=== PATIENT | male | born 1960 | race African-American/Black ===

== ENCOUNTER 2020-04-03 18:34 | Inpatient (IN) | payer BC ==
[~2020-04-03 18:34] MED LIST: Iopamidol-370 76% 500 ML 1 ML ONE
[2020-04-03 19:13] LABS: #Basophils 0.1 thou/uL (0.0-0.2); #Eosinphils 0.2 thou/uL (0.0-0.7); #Lymphocytes 2.6 thou/uL (1.20-3.40); #Monocytes 0.6 thou/uL (0.11-0.59); #Neutrophils 6.3 thou/uL (1.40-6.50); %Basophils 1.2 % (0.0-1.0); %Eosinophils 2.4 % (0.0-10.0); %Lymphocytes 26.5 % (21.0-51.0); %Monocytes 6.1 % (0.0-10.0); %Neutrophils 63.9 % (42.0-75.0); Hemoglobin 15.7 g/dL (14.0-18.0); Mean Corpuscular HGB CONC 33.1 g/dL (32.0-36.0); Mean Corpuscular Hemoglobin 31.5 pg (27.0-31.0); Mean Corpuscular Volume 95.1 fL (78.0-98.0); Mean Platelet Volume 7.9 fL (7.4-10.4); Platelet Count 231 thou/uL (130-400); RBC Distribution Width 11.7 % (11.5-14.5); Red Blood Cell (RBC) Count 4.97 mill/uL (4.70-6.10); White Blood Cell (WBC) Count 9.8 thou/uL (4.8-10.8)
[2020-04-03 19:26] LABS: Bilirubin Negative (Negative); Blood, Urine Negative (Negative); Clarity Clear (Clear); Glucose, Urine (Dipstick) Normal (Negative); Leukocyte Negative Leu/uL (Negative); Nitrite Negative (Negative); Protein, Urine (Dipstick) 20 mg/dL (Neg-Trace)
--- NOTE | 2020-04-03 19:30 | RAD ---
Chest one view HISTORY: Dyspnea. Chest pain. COMPARISON: 11/07/2015. FINDINGS: Cardiac silhouette is magnified by projection. Pulmonary vasculature is unremarkable. Subtle ill-defined vertically oriented opacity at the left suprahilar level has the appearance of par enchymal infiltrate. Mediastinum is midline. No pleural fluid or pneumothorax are apparent. surveillance system monitor leads overlie the chest. IMPRESSION : Subtle left suprahilar infiltrate. Clinical correlation regarding other signs and symptoms of left up per lobe pneumonitis is required.
--- NOTE | 2020-04-03 19:40 | CT ---
CT arteriogram chest with IV contrast and 3-D imaging HISTORY: Chest pain. Dyspnea. COMPARISON: 11/07/2015. FINDINGS: Large cylindrical low density filling defects are present within the right main pulmonary a rtery and extending into the right lung lobes and are also present within the left upper and lower lobe segmental arteries. Some parenchymal opacity involving the central aspect of the left lung may b e related to developing infarct given that it is in the area of heaviest clot burden. No pleural fluid or pneumothorax. No findings of right heart strain. 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 IMPRESSION : Extensive bilateral pulmonary emboli. No evidence of right heart strain. Findings were called to Dr. Cabrales in the emergency department at 1933 hours. Code CR.
[2020-04-03 19:41] LABS: ALT (SGPT) 14 U/L (8-55); AST (SGOT) 14 U/L (5-34); Albumin 4.5 g/dL (3.5-5.0); Alkaline Phosphatase 103 U/L (40-110); Anion Gap 18 mmol/L (10-20); BUN (Urea Nitrogen) 12 mg/dL (8.4-25.7); Bilirubin, Total 2.9 mg/dL (0.2-1.2); CK (CPK) 79 U/L (30-200); Calc. Creatinine Clearance 0 mL/min (70-130); Calcium 9.6 mg/dL (7.8-10.44); Carbon Dioxide 21 mmol/L (22-29); Chloride 103 mmol/L (98-107); Estimated GFR-MDRD 61; Globulin 3.3 g/dL (2.4-3.5); Glucose 87 mg/dL (70-105); Lipase 9 U/L (8-78); Potassium 3.4 mmol/L (3.5-5.1); Protein, Total 7.8 g/dL (6.0-8.3); Sodium 139 mmol/L (136-145)
[2020-04-03] MEDS ORDERED: Enoxaparin Sodium 100 MG/ML SYRINGE ONE (20:13)
[2020-04-03] MEDS ORDERED: Acetaminophen 325 MG TAB PO PRN (20:21)
[2020-04-03] MEDS ORDERED: HYDROcodone/Acetaminophen 5/325 mg Tablet PO PRN ×2 (20:21)
[2020-04-03] MEDS ORDERED: Acetaminophen 650 MG Suppository PR PRN (20:21)
[2020-04-03 20:26] LABS: CKMB 1.7 ng/mL (0-6.6)
--- NOTE | 2020-04-03 21:00 | PDOC.HHP ---
Hospitalist HPI - History of Present Illness sob / danny History of Present Illness: Case of an 60 y/o male with pmhx of dvt and PEs in the past come to hospital due to dyspnea. patient refers he was on his usual state of health until 3-4wks ago when he started with dyspnea worsen by exertion. he states he had episodes off and on for the the last weeks but in the last 3 days it has become worse. patient refers palpitations, diaphoresis and danny, he states he cant go from bed to bathroom w/o getting exhausted, and need hours to recuperate. patient denies chest pain, pt also refers many person in his family members have similar symptoms Hospitalist ROS - Review of Systems All other systems reviewed; all pertinent +/- noted in HPI/Subj Hospitalist History - Past Medical History Source: patient Pulmonary: reports: deep vein thrombosis, pulmonary embolism - Past Surgical History Past Surgical History: reports: Tonsillectomy - Family History Other Family History: coagulopathy - Social History Smoking Status: Current some day smoker Alcohol: reports: None Drugs: reports: none Living Situation: With Family Activity level: independent ambulation - Exam General Appearance: awake alert Eye: PERRL, anicteric sclera ENT: normocephalic atraumatic, no oropharyngeal lesions Neck: supple, symmetric, no JVD, no thyromegaly Heart: RRR, no murmur, no gallops, no rubs Respiratory: CTAB, no wheezes, no rales, no ronchi, tachypneic Gastrointestinal: soft, non-tender, non-distended, normal bowel sounds Extremities: no cyanosis, no clubbing Skin: normal turgor, no lesions, no rashes Neurological: cranial nerve grossly intact, normal sensation to touch, no weakness Musculoskeletal: normal tone, normal strength, no muscle wasting Psychiatric: normal affect, normal behavior, A&O x 3 Hospitalist Results - Labs Result Diagrams: 04/03/20 18:59 04/03/20 18:59 Lab results: WBC 9.8 thou/uL (4.8-10.8) 04/03/20 18:59 Hgb 15.7 g/dL (14.0-18.0) 04/03/20 18:59 Hct 47.3 % (42.0-52.0) 04/03/20 18:59 MCV 95.1 fL (78.0-98.0) 04/03/20 18:59 Plt Count 231 thou/uL (130-400) 04/03/20 18:59 Neutrophils % 63.9 % (42.0-75.0) 04/03/20 18:59 Sodium 139 mmol/L (136-145) 04/03/20 18:59 Potassium 3.4 mmol/L (3.5-5.1) L 04/03/20 18:59 Chloride 103 mmol/L (98-107) 04/03/20 18:59 Carbon Dioxide 21 mmol/L (22-29) L 04/03/20 18:59 BUN 12 mg/dL (8.4-25.7) 04/03/20 18:59 Creatinine 1.44 mg/dL (0.7-1.3) H 04/03/20 18:59 Glucose 87 mg/dL (70-105) 04/03/20 18:59 Lactic Acid 1.5 mmol/L (0.5-2.2) 04/03/20 18:59 Calcium 9.6 mg/dL (7.8-10.44) 04/03/20 18:59 Total Bilirubin 2.9 mg/dL (0.2-1.2) H 04/03/20 18:59 AST 14 U/L (5-34) 04/03/20 18:59 ALT 14 U/L (8-55) 04/03/20 18:59 Alkaline Phosphatase 103 U/L (40-110) 04/03/20 18:59 Creatine Kinase 79 U/L (30-200) 04/03/20 18:59 CK-MB (CK-2) 1.7 ng/mL (0-6.6) 04/03/20 18:59 Troponin I 0.389 ng/mL (< 0.028) H* 04/03/20 18:59 Serum Total Protein 7.8 g/dL (6.0-8.3) 04/03/20 18:59 Albumin 4.5 g/dL (3.5-5.0) 04/03/20 18:59 Lipase 9 U/L (8-78) 04/03/20 18:59 Urine Ketones 100 mg/dL (Negative) A 04/03/20 19:15 Urine Blood Negative (Negative) 04/03/20 19:15 Urine Nitrite Negative (Negative) 04/03/20 19:15 Ur Leukocyte Esterase Negative Martinez/uL (Negative) 04/03/20 19:15 - Radiology Interpretation CT scan - chest Status: image reviewed by me (b/l PE), report reviewed by md Hospitalist H&P A/P - Problem (1) Pulmonary embolism Code(s): I26.99 - OTHER PULMONARY EMBOLISM WITHOUT ACUTE COR PULMONALE Status : Acute (2) Hypoxemia Code(s): R09.02 - HYPOXEMIA Status: Acute (3) Coagulopathy Status: Acute (4) Tobacco use Code(s): Z72.0 - TOBACCO USE Status: Acute (5) Elevated troponin Code(s): R79.89 - OTHER SPECIFIED ABNORMAL FINDINGS OF BLOOD CHEMISTRY Status : Acute - Plan Plan: PE - paient with b/l PE by CT with dyspnea hypoxia and troponin elevation, started on lovenox full anticoagulation, will be admitted to telemetry, medical office manager consulted. hypoxia - secondary to PE, hypoxic at RA, wean as tolerated if possible, might require home 02 elevated troponin - troponin elevated, likely troponin leak due to possible heart strain from PE, will order 2d echo and serial troponins to evaluate trend tabacco use - occasional, advise to quit, nicotine patch offered, patient
[2020-04-03 22:21] LABS: Critical Call Chem Troponin I RESULT DECREASING; Troponin I 0.384 ng/mL (< 0.028)
[2020-04-03 22:28] VITALS: BMI 29.1
[2020-04-04 02:43] LABS: Critical Call Chem Troponin I RESULT DECREASING; Troponin I 0.382 ng/mL (< 0.028)
[2020-04-04 05:20] LABS: ALT (SGPT) 13 U/L (8-55); AST (SGOT) 24 U/L (5-34); Albumin 4.1 g/dL (3.5-5.0); Alkaline Phosphatase 93 U/L (40-110); Anion Gap 18 mmol/L (10-20); BUN (Urea Nitrogen) 12 mg/dL (8.4-25.7); Bilirubin, Total 2.7 mg/dL (0.2-1.2); Calc. Creatinine Clearance 77 mL/min (70-130); Calcium 9.1 mg/dL (7.8-10.44); Carbon Dioxide 20 mmol/L (22-29); Chloride 103 mmol/L (98-107); Estimated GFR-MDRD 61; Globulin 3.5 g/dL (2.4-3.5); Glucose 70 mg/dL (70-105); Protein, Total 7.6 g/dL (6.0-8.3); Sodium 137 mmol/L (136-145)
[2020-04-04 05:42] LABS: #Basophils 0.1 thou/uL (0.0-0.2); #Eosinphils 0.2 thou/uL (0.0-0.7); #Lymphocytes 2.5 thou/uL (1.20-3.40); #Monocytes 0.6 thou/uL (0.11-0.59); #Neutrophils 5.4 thou/uL (1.40-6.50); %Basophils 1.3 % (0.0-1.0); %Eosinophils 2.2 % (0.0-10.0); %Lymphocytes 28.7 % (21.0-51.0); %Monocytes 6.6 % (0.0-10.0); %Neutrophils 61.3 % (42.0-75.0); Hemoglobin 14.6 g/dL (14.0-18.0); Mean Corpuscular HGB CONC 33.2 g/dL (32.0-36.0); Mean Corpuscular Hemoglobin 31.6 pg (27.0-31.0); Mean Corpuscular Volume 95.2 fL (78.0-98.0); Mean Platelet Volume 8.2 fL (7.4-10.4); Platelet Count 230 thou/uL (130-400); RBC Distribution Width 11.6 % (11.5-14.5); Red Blood Cell (RBC) Count 4.61 mill/uL (4.70-6.10); White Blood Cell (WBC) Count 8.8 thou/uL (4.8-10.8)
[2020-04-04] MEDS ORDERED: Loratadine 10 MG TAB PO PRN (08:25)
[2020-04-04] MEDS ORDERED: Loperamide HCl 2 MG CAP PO PRN (08:25)
[2020-04-04] MEDS ORDERED: Calcium Carbonate 500 MG ChewTAB PO PRN (08:25)
[2020-04-04] MEDS ORDERED: Diabetic Tussin 200 MG/10 ML UDCUP PO PRN (08:25)
[2020-04-04] MEDS ORDERED: Artificial Tears 18 DROP/0.9 ML EA EYE PRN (08:25)
[2020-04-04] MEDS ORDERED: Ondansetron PF 4 MG/2 ML Vial IVP PRN (08:25)
[2020-04-04] MEDS ORDERED: Sodium Chloride 0.65% Nasal 44 ML BOT EA NARE PRN (08:25)
[2020-04-04] MEDS ORDERED: Zolpidem Tartrate 5 MG TAB PO PRN (08:25)
[2020-04-04] MEDS ORDERED: Ondansetron ODT 4 MG TAB PO PRN (08:25)
[2020-04-04] MEDS ORDERED: Senokot S 8.6-50 MG TAB PO PRN (08:25)
[2020-04-04] MEDS ORDERED: Bisacodyl 10 MG SUPP PR PRN (08:25)
[2020-04-04] MEDS ORDERED: hydrALAZINE 20 MG/ML VIAL SLOW IVP PRN (08:25)
[2020-04-04] MEDS ORDERED: Cepastat Lozenges 1 LOZ PO PRN (08:25)
[2020-04-04] MEDS: Enoxaparin Sodium 100 MG/ML SYRINGE SC SCH ×2 (08:38→21:05)
--- NOTE | 2020-04-04 10:46 | ULT ---
EXAM: Bilateral lower extremity venous Doppler HISTORY: Pulmonary embolism and history of DVT. FINDINGS: Grayscale, color-flow, Doppler evaluation, spectral analysis of the bilateral lower extremity venous structures is performed with 2-D imaging. The bilateral common femoral, superficial femoral, popliteal, posterior tibial, proximal greater saphenous and profunda femoral veins are imaged. There is echogenic material and decreased lumen compressibility seen within the right lower extremity popliteal vein and extending into the proximal peroneal vein. There is also increased luminal echogenicity and decreased lumen compressibility involving the left lower extremity popliteal vein ex tending into the peroneal veins with decreased lumen compressibility and echogenic material seen within the mid and distal left lower extremity posterior tibial vein. Findings are compatible with bi lateral lower extremity deep vein thrombosis. There is otherwise normal luminal compressibility and flow in the remaining visualized deep venous st ructures throughout the bilateral lower extremities. IMPRESSION: Evidence of deep vein thrombosis involving the bilateral popliteal and peroneal veins as well as left lower extremity posterior tibial vein.
--- NOTE | 2020-04-04 10:47 | CON ---
DATE OF CONSULTATION: HISTORY OF PRESENT ILLNESS: The patient is a 60-year-old gentleman who presented with the acute onset of dyspnea. The patient was seen in 2015 with a pulmonary embolus. The patient was subsequently placed on anticoagulation therapy. He states he took Xarelto for several months. He discontinued this medication. The patient was in his usual state of health until a few weeks ago when he started noticing increasing dyspnea. He states this occurred with minimal exertion. The patient presented to the emergency room with dyspnea. The patient denied having any chest discomfort. PAST MEDICAL HISTORY: 1. Pulmonary embolus. 2. Kidney stone. PAST SURGICAL HISTORY: 1. He has had a hernia surgery. 2. Adenoidectomy. SOCIAL HISTORY: He uses marijuana. Nonsmoker. ALLERGIES: NO KNOWN DRUG ALLERGIES. MEDICATIONS: None. REVIEW OF SYSTEMS: Ten-point system otherwise unremarkable. PHYSICAL EXAMINATION: GENERAL: A well-developed gentleman, in no acute distress. VITAL SIGNS: Blood pressure 128/74. NECK: No jugular vein distention. LUNGS: Clear to auscultation. HEART: Regular rate and rhythm. Normal S1 and S2. No murmurs. ABDOMEN: Nondistended. EXTREMITIES: No edema. VASCULAR: 2+. LABORATORY DATA: Sodium 137, potassium 4.0, chloride 103, bicarb 20, BUN 12, and creatinine 1.4. Troponin was 0.382. White blood cell count 8.8, hemoglobin 14.6, hematocrit 43.9, and platelets are 230. EKG revealed normal sinus rhythm with a T-wave abnormality, suggestive of ischemia and prolonged QT interval. IMPRESSION: 1. Pulmonary embolus. 2. Renal insufficiency. 3. Elevated troponin level. PLAN: This gentleman presents with pulmonary embolus. We will check the patient's echocardiogram. We will follow this patient with you through his hospitalization. Job ID: [id number] [facility]
--- NOTE | 2020-04-04 10:50 | PDOC.HOSPP ---
- Subjective Encounter Date: 04/04/20 Encounter Time: 08:00 Subjective: Patient seen and examined. No new complaints. No overnight events - Objective Vital Signs & Weight: Vital Signs (12 hours) Temp Pulse Resp BP Pulse Ox 04/04/20 03:29 98 F 75 16 128/74 97 Weight Weight 214 lb 14.4 oz I&O: 04/03/20 04/04/20 04/05/20 06:59 06:59 06:59 Intake Total 360 Output Total 300 Balance 60 Result Diagrams: 04/04/20 04:25 04/04/20 04:25 Radiology Reviewed by me: Yes EKG Reviewed by me: Yes Hospitalist ROS - Review of Systems Eyes: denies: pain, vision change, conjunctivae inflammation, eyelid inflammation, redness, other ENT: denies: ear pain, ear discharge, nose pain, nose discharge, nose congestion , mouth pain, mouth swelling, throat pain, throat swelling, other Respiratory: denies: cough, dry, shortness of breath, hemoptysis, SOB with excertion, pleuritic pain, sputum, wheezing, other Cardiovascular: denies: chest pain, palpitations, orthopnea, paroxysmal noc. dyspnea, edema, light headedness, other Gastrointestinal: denies: nausea, vomiting, abdominal pain, diarrhea, constipation, melena, hematochezia, other Genitourinary: denies: dysuria, frequency, incontinence, hematuria, retention, other Musculoskeletal: denies: neck pain, shoulder pain, arm pain, back pain, hand pain, leg pain, foot pain, other Skin: denies: rash, lesions, alaina, bruising, other - Medication Medications: Active Medications Generic Name Dose Route Start Last Admin Trade Name Freq PRN Reason Stop Dose Admin Enoxaparin Sodium 100 mg 04/04/20 09:00 04/04/20 08:38 Lovenox SC 100 mg 0900,2100 SP Administration - Exam General Appearance: NAD, awake alert Eye: PERRL, anicteric sclera ENT: normocephalic atraumatic, no oropharyngeal lesions Neck: supple, symmetric, no JVD, no thyromegaly Heart: RRR, no murmur Respiratory: CTAB, no wheezes, no rales, no ronchi Gastrointestinal: soft, non-tender, non-distended, normal bowel sounds Extremities: no cyanosis, no clubbing, no edema Skin: normal turgor, no lesions Neurological: no focal deficits Musculoskeletal: normal tone, normal strength Psychiatric: normal affect, normal behavior Hosp A/P (1) Acute respiratory failure with hypoxemia Code(s): J96.01 - ACUTE RESPIRATORY FAILURE WITH HYPOXIA Status: Acute (2) Pulmonary embolism Code(s): I26.99 - OTHER PULMONARY EMBOLISM WITHOUT ACUTE COR PULMONALE Status : Acute Qualifiers: Pulmonary embolism type: multiple subsegmental (without acute cor pulmonale) Qualified Code(s): I26.94 - Multiple subsegmental pulmonary emboli without acute cor pulmonale (3) DVT (deep venous thrombosis) Code(s): I82.409 - ACUTE EMBOLISM AND THOMBOS UNSP DEEP VN UNSP LOWER EXTREMITY Status: Acute Qualifiers: DVT location: lower extremity Affected thrombotic vein of extremity: popliteal Chronicity: acute Laterality: bilateral Qualified Code(s): I82.433 - Acute embolism and thrombosis of popliteal vein, bilateral (4) Type 2 myocardial infarction Code(s): I21.A1 - MYOCARDIAL INFARCTION TYPE 2 Status: Acute (5) FRANCISCA (acute kidney injury) Code(s): N17.9 - ACUTE KIDNEY FAILURE, UNSPECIFIED Status: Acute (6) Tobacco use Code(s): Z72.0 - TOBACCO USE Status: Chronic (7) ESTEBAN on CPAP Code(s): G47.33 - OBSTRUCTIVE SLEEP APNEA (ADULT) (PEDIATRIC) Status: Chronic - Plan old records reviewed/req continue lovenox cardiology consult US leg positive for DVT pulmonary consulted echo pending monitor labs he will need life long anticoagulants medication reviewed and continue symptomatic treatment change to inpt status
[2020-04-04 12:59] LABS: INR-International Normal Ratio 1.2; PTT 51.2 SEC (22.9-36.1); Prothrombin Time 14.8 sec (12.0-14.7)
[2020-04-04 13:00] LABS: D-Dimer Test 3.75 *mcg/mL (0.27-0.43)
--- NOTE | 2020-04-04 19:02 | CON ---
DATE OF CONSULTATION: HISTORY OF PRESENT ILLNESS: This is a 60-year-old gentleman, who comes into the ER with shortness of breath as outlined. 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 Denies any chest pain, fevers, chills, sweats, or hemoptysis. Denies any leg swelling. Reviewing his medical records, he had a diagnosis of pulmonary emboli 4 years ago. Received anticoagulation for an unknown period of time. He has done well. PAST MEDICAL HISTORY: Pertinent for previous pulmonary emboli, previous DVT. PAST SURGICAL HISTORY: Hernia, tonsils. SOCIAL HISTORY: Alcohol, none. He uses marijuana. HOME MEDICATIONS: Unknown. SOCIAL HISTORY: As noted. FAMILY HISTORY: Unremarkable. He says mother might had DVT at one time, otherwise negative. PHYSICAL EXAMINATION: VITAL SIGNS: Temperature 98, pulse 73, respirations 16, O2 sats 92% on 2 L, blood pressure 120/60. CHEST: No wheezing, crackles. CARDIAC: Normal S1, S2. No gallops. ABDOMEN: No masses. LABORATORY DATA: Creatinine 1.43. Troponin was elevated. Echo is pending. CT chest shows evidence of bilateral pulmonary emboli with a right ventricular strain. Ultrasound of legs, DVT. IMPRESSION: 1. Bilateral pulmonary emboli, deep venous thrombosis, recurrent. 2. Azotemia. 3. Marijuana intake. PLAN: I agree with Gabrielax, is going to require lifelong anticoagulation. Chemistry profile is being ordered. He has seen Dr. Hall in the past. We will notify him tomorrow. Consultation note, 70 minutes, 50% direct patient care. Job ID: [id number]
[2020-04-05 04:38] LABS: Hemoglobin 14.6 g/dL (14.0-18.0); Platelet Count 232 thou/uL (130-400)
[2020-04-05 05:24] LABS: INR-International Normal Ratio 1.1; Prothrombin Time 13.7 sec (12.0-14.7)
[2020-04-05 05:25] LABS: D-Dimer Test 3.77 *mcg/mL (0.27-0.43)
[2020-04-05] MEDS: Enoxaparin Sodium 100 MG/ML SYRINGE SC SCH ×2 (09:01→20:18)
--- NOTE | 2020-04-05 09:54 | PDOC.HOSPP ---
- Subjective Encounter Date: 04/05/20 Encounter Time: 08:30 Subjective: Patient seen and examined. No new complaints. No overnight events - Objective Vital Signs & Weight: Vital Signs (12 hours) Temp Pulse Resp BP Pulse Ox 04/05/20 08:59 98.0 F 72 16 126/85 100 04/05/20 04:00 98.1 F 68 18 95/57 L 100 Weight Weight 214 lb 14.4 oz I&O: 04/04/20 04/05/20 04/06/20 06:59 06:59 06:59 Intake Total 360 990 Output Total 300 950 Balance 60 40 Result Diagrams: 04/05/20 03:58 04/05/20 03:58 Radiology Reviewed by me: Yes EKG Reviewed by me: Yes Hospitalist ROS - Review of Systems ENT: denies: ear pain, ear discharge, nose pain, nose discharge, nose congestion , mouth pain, mouth swelling, throat pain, throat swelling, other Respiratory: denies: cough, dry, shortness of breath, hemoptysis, SOB with excertion, pleuritic pain, sputum, wheezing, other Cardiovascular: denies: chest pain, palpitations, orthopnea, paroxysmal noc. dyspnea, edema, light headedness, other Gastrointestinal: denies: nausea, vomiting, abdominal pain, diarrhea, constipation, melena, hematochezia, other Genitourinary: denies: dysuria, frequency, incontinence, hematuria, retention, other Musculoskeletal: denies: neck pain, shoulder pain, arm pain, back pain, hand pain, leg pain, foot pain, other - Medication Medications: Active Medications Generic Name Dose Route Start Last Admin Trade Name Samsonq PRN Reason Stop Dose Admin Enoxaparin Sodium 100 mg 04/04/20 09:00 04/05/20 09:01 Lovenox SC 100 mg 0900,2100 [facility] Administration - Exam General Appearance: NAD, awake alert Eye: PERRL, anicteric sclera ENT: normocephalic atraumatic, no oropharyngeal lesions Neck: supple, symmetric, no JVD, no thyromegaly Heart: RRR, no murmur, no gallops, no rubs Respiratory: CTAB, no wheezes, no rales, no ronchi Gastrointestinal: soft, non-tender, non-distended, normal bowel sounds Extremities: no cyanosis, no clubbing Skin: normal turgor, no lesions Neurological: cranial nerve grossly intact, no focal deficits Musculoskeletal: normal tone, normal strength Psychiatric: normal affect, normal behavior Hosp A/P (1) Acute respiratory failure with hypoxemia Code(s): J96.01 - ACUTE RESPIRATORY FAILURE WITH HYPOXIA Status: Acute (2) Pulmonary embolism Code(s): I26.99 - OTHER PULMONARY EMBOLISM WITHOUT ACUTE COR PULMONALE Status : Acute Qualifiers: Pulmonary embolism type: multiple subsegmental (without acute cor pulmonale) Qualified Code(s): I26.94 - Multiple subsegmental pulmonary emboli without acute cor pulmonale (3) DVT (deep venous thrombosis) Code(s): I82.409 - ACUTE EMBOLISM AND THOMBOS UNSP DEEP VN UNSP LOWER EXTREMITY Status: Acute Qualifiers: DVT location: lower extremity Affected thrombotic vein of extremity: popliteal Chronicity: acute Laterality: bilateral Qualified Code(s): I82.433 - Acute embolism and thrombosis of popliteal vein, bilateral (4) Type 2 myocardial infarction Code(s): I21.A1 - MYOCARDIAL INFARCTION TYPE 2 Status: Acute (5) FRANCISCA (acute kidney injury) Code(s): N17.9 - ACUTE KIDNEY FAILURE, UNSPECIFIED Status: Acute (6) Tobacco use Code(s): Z72.0 - TOBACCO USE Status: Chronic (7) ESTEBAN on CPAP Code(s): G47.33 - OBSTRUCTIVE SLEEP APNEA (ADULT) (PEDIATRIC) Status: Chronic - Plan old records reviewed/req continue lovenox cardiology consult US leg positive for DVT pulmonary consulted echo pending monitor labs he will need life long anticoagulants medication reviewed and continue symptomatic treatment change to inpt status 04/05/20 continue lovenox today given severity of DVT and PE wean off oxygen as tolerated cardi-pulmonary recommendation appreciated he will need age appropriate cancer screening outpt
[2020-04-05 11:47] LABS: Factor VIII Test 184.6 % ACTIVE (56-157); HEX PHOS LA Tube 1 50.7 SEC; HEX PHOS LA Tube 2 44.1 SEC; Hexagonal Phospholipid Neut 6.6 SEC (0-8.0); Protein C Activity 69 % (78-152)
--- NOTE | 2020-04-05 16:08 | PRG ---
DATE OF SERVICE: 04/05/2020 SUBJECTIVE: Mr. Lizama says he is feeling better. He says his legs are not bother him. He denies being short of breath. He is now on room air at 95% saturations. OBJECTIVE: VITAL SIGNS: Blood pressure 135/77, heart rate 70, respiratory rate 20. LUNGS: Clear. HEART: Regular rhythm. ABDOMEN : Soft. IMPRESSION: Subacute thromboembolic disease. PLAN: I would recommend switching him to a loading dose of Eliquis in the morning. I have asked him to get a Life Alert bracelet for his anticoagulants. He has already been on anticoagulants in the past, so he understands the risks. Thrombosis panel probably should be sent just in the event he has something that would lead to need for genetic counseling with family. Job ID: [id number]
[2020-04-05 17:57] LABS: Cardiolipin IgA Ab 1.5 APL-U/mL (<14 Negative); Cardiolipin IgG Ab 4.3 GPL-U/mL (<10 Negative); Cardiolipin IgM Ab 1.1 MPL-U/mL (<10 Negative); EliA APS New Method **** NEW METHOD ****
[2020-04-06 05:03] LABS: Prothrombin Time 13.6 sec (12.0-14.7)
[2020-04-06] MEDS: Enoxaparin Sodium 100 MG/ML SYRINGE SC SCH (08:37)
--- NOTE | 2020-04-06 10:43 | PRG ---
DATE OF SERVICE: 04/06/2020 SUBJECTIVE: Mr. Lizama has no new complaints. He is in a bedside chair. He denied shortness of breath. OBJECTIVE: VITAL SIGNS: His oximetry is 96% on room air. Afebrile. Heart rate 69, blood pressure 114/71. LUNGS: Clear. HEART: Regular rhythm. ABDOMEN: Soft. EXTREMITIES: Without asymmetry or edema. He has at the bottom of his right gluteal margin what appears to be an epidermal inclusion cyst. He wanted me to look at that. He says it has been there for years and had not changed in size. I have asked him to see a surgeon as an outpatient to see if this needs to be drained or excised. Other than that, he has no other issues at this point in time. He had his last dose of Lovenox this morning. He will be started on Eliquis this evening. Hopefully, we can anticipate he will be discharged in the morning. Job ID: [id number]
--- NOTE | 2020-04-06 17:20 | PDOC.HOSPP ---
- Subjective Subjective: Seen and examined on the medical unit with telemetry. Patient has improved since admission. Patient now breathing comfortably on room air. We're transitioning them off Lovenox to Eliquis. Patient has had unprovoked pulmonary embolism in the past, he will now requiring lifelong anticoagulation. Time was given for questions, all answered in detail. - Objective Vital Signs & Weight: Vital Signs (12 hours) Temp Pulse Resp BP Pulse Ox 04/06/20 16:11 98.1 F 67 17 114/74 95 04/06/20 11:28 98.0 F 70 18 120/75 97 04/06/20 07:39 97.3 F L 69 16 114/71 96 Weight Weight 214 lb 14.4 oz I&O: 04/05/20 04/06/20 04/07/20 06:59 06:59 06:59 Intake Total 990 960 Output Total 950 400 Balance 40 560 Result Diagrams: 04/05/20 03:58 04/05/20 03:58 Radiology Reviewed by me: Yes Hospitalist ROS - Review of Systems All other systems reviewed; all pertinent +/- noted in HPI/Subj - Exam General Appearance: NAD, awake alert Eye: anicteric sclera ENT: normocephalic atraumatic, moist mucosa Neck: supple, symmetric, no lymphadenopathy Heart: no murmur, no gallops Respiratory: no wheezes, no rales, no ronchi Respiratory - other findings: mildly deminished breath sounds upper lung bender Gastrointestinal: soft, non-tender, no guarding, no rigidity Extremities: 1+ LE edema Skin: no rashes Neurological: cranial nerve grossly intact, no focal deficits Musculoskeletal: normal strength Psychiatric: normal affect, A&O x 3 Hosp A/P (1) FRANCISCA (acute kidney injury) Code(s): N17.9 - ACUTE KIDNEY FAILURE, UNSPECIFIED Status: Acute (2) Acute respiratory failure with hypoxemia Code(s): J96.01 - ACUTE RESPIRATORY FAILURE WITH HYPOXIA Status: Acute (3) Coagulopathy Status: Acute (4) Elevated troponin Code(s): R79.89 - OTHER SPECIFIED ABNORMAL FINDINGS OF BLOOD CHEMISTRY Status : Acute (5) Hypoxemia Code(s): R09.02 - HYPOXEMIA Status: Acute (6) Type 2 myocardial infarction Code(s): I21.A1 - MYOCARDIAL INFARCTION TYPE 2 Status: Acute (7) Tobacco use Code(s): Z72.0 - TOBACCO USE Status: Chronic (8) ESTEBAN (obstructive sleep apnea) Code(s): G47.33 - OBSTRUCTIVE SLEEP APNEA (ADULT) (PEDIATRIC) Status: Acute (9) Pulmonary embolism Code(s): I26.99 - OTHER PULMONARY EMBOLISM WITHOUT ACUTE COR PULMONALE Status : Acute Qualifiers: Pulmonary embolism type: multiple subsegmental (without acute cor pulmonale) Qualified Code(s): I26.94 - Multiple subsegmental pulmonary emboli without acute cor pulmonale (10) ESTEBAN on CPAP Code(s): G47.33 - OBSTRUCTIVE SLEEP APNEA (ADULT) (PEDIATRIC) Status: Chronic - Plan Plan: medical unit with telemetry cardiology consultation, recommendations appreciated pulmonology consultation, recommendations appreciated we are transitioning from Lovenox to Eliquis with patient second unprovoked thromboembolic event he will require lifelong and coagulation patient saturating well on room air, no longer hypoxic type II NSTEMI, present on admission, secondary to strain from pulmonary embolism continue other home medications as able blood pressure control blood sugar control G.I. prophylaxis DVT prophylaxis
[2020-04-06] MEDS: Apixaban 5 MG TAB PO SCH (20:07)
[2020-04-07 04:52] LABS: Platelet Count 220 thou/uL (130-400)
[2020-04-07 05:03] LABS: Prothrombin Time 13.6 sec (12.0-14.7)
[2020-04-07 08:22] VITALS: BP 127/71; TEMP 98.2
[2020-04-07] MEDS: Apixaban 5 MG TAB PO SCH (08:26)
--- NOTE | 2020-04-07 09:59 | PDOC.HOSPP ---
- Subjective Encounter Date: 04/07/20 Encounter Time: 09:55 Subjective: Alex grossman was seen today in follow-up of Bilateral PE. He does not have any complaints. - Objective Vital Signs & Weight: Vital Signs (12 hours) Temp Pulse Resp BP BP Pulse Ox 04/07/20 08:22 97 04/07/20 08:17 98.2 F 78 18 127/71 97 04/07/20 03:44 98.3 F 63 18 109/68 95 Weight Weight 214 lb 14.4 oz I&O: 04/06/20 04/07/20 04/08/20 06:59 06:59 06:59 Intake Total 960 720 Output Total 400 650 Balance 560 70 Result Diagrams: 04/07/20 04:44 04/07/20 04:44 Hospitalist ROS - Medication Medications: Active Medications Generic Name Dose Route Start Last Admin Trade Name Freq PRN Reason Stop Dose Admin Apixaban 10 mg 04/06/20 21:00 04/07/20 08:26 Eliquis PO 10 mg BID SP Administration - Exam Eye: PERRL, anicteric sclera Heart: RRR, no murmur, no gallops, no rubs, normal peripheral pulses Respiratory: CTAB, no wheezes, no rales, no ronchi Gastrointestinal: soft, non-tender, non-distended, normal bowel sounds, no palpable masses, no hepatomegaly Extremities: no cyanosis, no edema Hosp A/P (1) Pulmonary embolism Code(s): I26.99 - OTHER PULMONARY EMBOLISM WITHOUT ACUTE COR PULMONALE Status : Acute Qualifiers: Pulmonary embolism type: multiple subsegmental (without acute cor pulmonale) Qualified Code(s): I26.94 - Multiple subsegmental pulmonary emboli without acute cor pulmonale (2) DVT (deep venous thrombosis) Code(s): I82.409 - ACUTE EMBOLISM AND THOMBOS UNSP DEEP VN UNSP LOWER EXTREMITY Status: Acute Qualifiers: DVT location: lower extremity Affected thrombotic vein of extremity: popliteal Chronicity: acute Laterality: bilateral Qualified Code(s): I82.433 - Acute embolism and thrombosis of popliteal vein, bilateral (3) Type 2 myocardial infarction Code(s): I21.A1 - MYOCARDIAL INFARCTION TYPE 2 Status: Acute (4) ESTEBAN (obstructive sleep apnea) Code(s): G47.33 - OBSTRUCTIVE SLEEP APNEA (ADULT) (PEDIATRIC) Status: Acute - Plan * Bilateral PE- continue eliquis * Elevated troponin- likely demand ischemia from the PE- Patient will have an outpatient stress test * Stable for discharge home
--- NOTE | 2020-04-07 20:54 | DIS ---
DATE OF ADMISSION: 04/03/2020 DATE OF DISCHARGE: 04/07/2020 PRIMARY CARE PHYSICIAN: Merrick Love MD DISCHARGE DIAGNOSES: 1. Acute respiratory failure with hypoxemia secondary to #2. 2. Bilateral pulmonary embolism. 3. Deep vein thrombosis of the left lower extremity. CODE STATUS: Full code. ALLERGIES: NO KNOWN DRUG ALLERGIES. IMAGING DONE DURING THE HOSPITAL STAY: The patient had a CT angiogram of the chest, which showed extensive bilateral pulmonary emboli. The patient had a lower extremity venous Doppler showing extensive deep vein thrombosis involving bilateral popliteal and peroneal veins, as well as a left lower extremity posterior tibial vein. The patient had an echocardiogram and this showed an ejection fraction estimated at 55% to 60%, moderately enlarged right ventricular cavity and right ventricular systolic pressure was 80 mmHg consistent with severe pulmonary hypertension. HOSPITAL COURSE: Mr. Lizama is a pleasant 60-year-old gentleman, who presented to the emergency room with complaints of shortness of breath and dyspnea on exertion. He was evaluated in the ER and found to have bilateral pulmonary embolisms. Further evaluation demonstrated bilateral lower extremity deep vein thromboses as well. He was admitted, started on anticoagulation. He was evaluated by Pulmonology due to the extensive nature of the PE. He was also noted to have elevated troponins, which is thought to be secondary to the strain on the heart or otherwise NSTEMI type 2 due to demand ischemia. However, once the patient is more stable, an outpatient stress test is planned. The patient did well during the course of the hospital stay, was able to be weaned off oxygen and is being discharged home today. The risks and benefits of Eliquis were explained, as well as warning signs of when to seek medical attention such as dark stools, feeling weak and dizzy, etc. He was also instructed not to participate in any high impact type sports or anything that could put him at significant risk of fall. Job ID: [id number]
--- NOTE | 2020-04-09 13:30 | EKG ---
Test Reason : SOB Blood Pressure : / mmHG Vent. Rate : 083 BPM Atrial Rate : 083 BPM P-R Int : 154 ms QRS Dur : 090 ms QT Int : 426 ms P-R-T Axes : 055 -09 -13 degrees QTc Int : 500 ms Normal sinus rhythm Possible Left atrial enlargement Cannot rule out Inferior infarct , age undetermined T wave abnormality, consider anterior ischemia Prolonged QT Abnormal ECG Confirmed by EMERSON MERRILL DO ([id number]), order editor CHANTALE FLORENTINO ([id number]) on 04/09/2020 1:30:20 PM Referred By: COLUMBA MERRILL Confirmed By:EMERSON MERRILL DO
[2020-04-14 20:36] LABS: Activated Protein C Resistance 2.7 ratio (.)
== END 2020-04-07 11:03 | disposition home or self-care (01) | DRG 175 ==
LOC: ERS 18:34 → OBSVTOIN 20:53 → 2NO 20:53
PROVIDERS: ADMIT Internal Medicine; ATTEND Internal Medicine
DX: I26.99 Other pulmonary embolism without acute cor pulmonale (principal); J96.01 Acute respiratory failure with hypoxia; I21.A1 Myocardial infarction type 2; I82.453 Acute embolism and thrombosis of peroneal vein, bilateral; I82.433 Acute embolism and thrombosis of popliteal vein, bilateral; I27.0 Primary pulmonary hypertension; I82.442 Acute embolism and thrombosis of left tibial vein; N17.9 Acute kidney failure, unspecified; D68.9 Coagulation defect, unspecified; F17.210 Nicotine dependence, cigarettes, uncomplicated; G47.33 Obstructive sleep apnea (adult) (pediatric); Z87.442 Personal history of urinary calculi
CPT/HCPCS: 36415; 71045; 71275; 80053; 81003; 81240; 81241; 82550; 82553; 82565; 83090; 83605; 83690; 84484; 85014; 85018; 85025; 85049; 85240; 85300; 85303; 85305; 85307; 85379; 85598; 85610; 85730; 86147; 87040; 87086; 93005; 93306; 93970; 94760; 96372; J1650; Q9967

== ENCOUNTER 2020-12-02 10:00 | Emergency (ER) | payer BC ==
[2020-12-02 16:44] LABS: SARS-CoV-2 MS2 Positive; SARS-CoV-2 N Gene Positive; SARS-CoV-2 S Gene Positive; SARS-CoV-2 by NAA DETECTED (NotDetected); SARS-CoV-2 orf1ab Positive
== END 2020-12-02 10:17 | disposition expired ==
LOC: ERS 10:00
DX: I46.9 Cardiac arrest, cause unspecified (principal); F17.210 Nicotine dependence, cigarettes, uncomplicated
CPT/HCPCS: 31500; 87635; 92950; 96374; 96375; J2997; U0003